=== PATIENT | female | born 1930 | race Caucasian/White ===

== ENCOUNTER 2017-03-07 17:24 | Emergency (ER) | payer MEDICARE ==
[~2017-03-07 17:24] MED LIST: ACET500CAP PO; ASAB PO; ASPERCREME; ASPERCREME102 TOP; CALTRA600D PO; CELEXA20 PO; CELEXA40 MG PO; CLARIT10 PO; CLOBETASOL0.05 % TOP; COMBIVENT INH; COMBIVENT RESPIM4 GM PO; CONGESTION; COZ50 PO; CRESTOR20 MG PO; DOC Q LACE; ENABLEX7.5 PO; ENDOCET1 TA2 PO; FISH-EPA1000 MG PO; FOSAMAX70 MG PO; KDUR20 PO; KLOR-CON M2020 MEQ PO; L20 PO; L40 PO; LOP25 PO; MIRALAXPKT PO; MUCINEX D1 TA1 OR; MUCINEX D1 TA1 PO; MUCINEX600 MG PO; MULTIPLE VIT PO; MULTIVITAMI1 PO; NIZORSHAM TOP; NORCO1 TA1 PO; OS500+D PO; PRENATABS RX PO; PRESERVISION A1 EACH PO; PRESERVISION PO; PROTONIX PO; SPIRO25 PO; TEMOVATE CREAM30 GM TOP; VIACTIV PO; VITAMIN D1000 UNI1 PO; VITAMIN D31000 UNIT PO; VITC500 PO; WELLSR150 PO; WELLXL150 PO; WELLXL300 PO; ZOFRAN ODT4 MG PO; [UNRECOGNIZED DRUG - OTHER]; [UNRECOGNIZED DRUG - OTHER] TOP
[2017-04-25] MEDS ORDERED: DUONEB INH (11:57)
[2017-04-25] MEDS ORDERED: LIDODERM TOP (11:59)
[2017-04-25] MEDS ORDERED: ZOFRAN4 PO (12:00)
[2017-04-25] MEDS ORDERED: UREA TOP (12:04)
== END 2017-03-07 23:20 | disposition home or self-care (01) ==
LOC: ER 17:24
DX: S01.01XA Laceration without foreign body of scalp, initial encounter (principal); S20.221A Contusion of right back wall of thorax, initial encounter; I10 Essential (primary) hypertension; I48.91 Unspecified atrial fibrillation; J45.909 Unspecified asthma, uncomplicated; Z86.73 Personal history of transient ischemic attack (TIA), and cerebral infarction without residual deficits; Z95.1 Presence of aortocoronary bypass graft; Z79.01 Long term (current) use of anticoagulants; Z88.0 Allergy status to penicillin; Z88.5 Allergy status to narcotic agent; Z88.8 Allergy status to other drugs, medicaments and biological substances; Z79.82 Long term (current) use of aspirin; Z79.899 Other long term (current) drug therapy; W01.0XXA Fall on same level from slipping, tripping and stumbling without subsequent striking against object, initial encounter
CPT/HCPCS: 70450; 72125; 73030-RT; 99284; A9270-GY